=== PATIENT | female | born 1965 | race Caucasian/White ===

== ENCOUNTER 2016-03-14 02:59 | Emergency (ER) | payer BC ==
[~2016-03-14] VITALS: Ht 165.1 cm; Wt 87.5 kg
[~2016-03-14 02:59] MED LIST: AZAT50TA25 PO; FOLI400T41 PO; METH1TAB81 PO; SULF800T23 PO
[2016-03-14 03:11] VITALS: TEMP 36.8; Ht 165.1 cm; Wt 87.5 kg
[2016-03-14] MEDS ORDERED: ONDANSETRON INJ 2 MG/ML 2 ML VIAL IV STA (03:45)
[2016-03-14] MEDS ORDERED: MoRPHine SULFATE 4 MG/ML 1 ML CARP\\VIAL IV STA (03:45)
[2016-03-14] MEDS ORDERED: SODIUM CHLORIDE 0.9% 1000ML 1,000 ML IV STA (03:45)
[2016-03-14] MEDS ORDERED: OPTIRAY 320 IV PRN (04:00)
[2016-03-14 04:07] LABS: BASO % 0.2 %; BASO ABS # 0.02 K/uL (0-0.2); COMPLETE YES; EOS % 1.2 %; HEMATOCRIT 36.1 % (37-47); IG% 0.6 %; LYMPH % 19.5 %; LYMPH ABS # 2.09 K/uL (1.2-3.4); MEAN CELL VOLUME 85.3 fL (80-100); MEAN CORPUSCULAR HEMOGLOBIN 29.8 pg (25-34); MEAN CORPUSCULAR HGB CONC 34.9 g/dl (32-36); MEAN PLATELET VOLUME 9.6 fL (7.4-10.4); MONO % 7.3 %; NEUT % 71.2 %; PLATELET COUNT 221 K/uL (130-400); RED BLOOD COUNT 4.23 M/uL (4.2-5.4)
[2016-03-14 04:26] LABS: BUN/CREATININE RATIO 13.8 (10-20); CALCIUM 8.9 mg/dl (8.5-10.1); CREATININE 0.9 mg/dl (0.60-1.20); MAGNESIUM 2.1 mg/dl (1.8-2.4); POTASSIUM 3.6 mmol/L (3.5-5.1); URINE APPEARANCE CLOUDY (CLEAR); URINE BILIRUBIN NEG (NEG); URINE COLOR DK YELLOW; URINE EPITHELIAL CELL AUTO >30 /lpf (0-5); URINE NITRITE POS (NEG); URINE SPECIFIC GRAVITY 1.013 (1.000-1.030); UROBILINOGEN NEG (NEG); ZZUR CULT IF INDIC CLEAN CATCH YES
[2016-03-14 04:29] LABS: C-REACTIVE PROTEIN 1.45 mg/dl (0-0.29)
[2016-03-14 04:32] LABS: MANUAL MICROSCOPIC REQUIRED? NO; REVIEW REQ? NO
[2016-03-14] MEDS ORDERED: CIPROFLOXACIN 400MG / 200ML D5W IV STA (05:40)
[2016-03-14] MEDS ORDERED: METH-737 PO (05:58)
--- NOTE | 2016-03-14 06:13 | DIAGNOSTIC IMAGING REPORT ---
CT SCAN OF THE ABDOMEN AND PELVIS WITH IV CONTRAST CLINICAL HISTORY: Generalized abdominal pain. COMPARISON STUDY: Abdominal CT dated 02/10/2016. TECHNIQUE: Following the IV administration of 102 cc of Optiray 320, CT scan of the abdomen and pelvis is performed from the lung bases to the proximal femora. Images are reviewed in the axial, sagittal, and coronal planes. IV contrast was administered without complication. Automated dose control exposure was utilized. CT DOSE: 591.06 mGy.cm FINDINGS: Lung bases: The heart is normal in size and without pericardial effusion. There is a small fat-containing Bochdalek hernia at the right lung base. The lung bases are otherwise clear. Liver: The contrast-enhanced liver is normal in size, contour, and attenuation. There is no intrahepatic biliary ductal dilatation. The hepatic veins and portal veins are patent. Gallbladder: Surgically absent noting clips in the gallbladder fossa. Spleen: Normal in size and attenuation. Pancreas: Unremarkable. Adrenal glands: Unremarkable. Kidneys: The contrast enhanced kidneys are normal in size and without hydronephrosis. The kidneys enhance symmetrically. Abdominal vasculature: The abdominal aorta is normal in course and caliber. Bowel: There is a small duodenal diverticulum. The small bowel and colon are normal in course and caliber. There is mild colonic diverticulosis. There is mild wall thickening and inflammatory stranding involving the distal descending/proximal sigmoid colon consistent with diverticulitis. No abscess is seen. There is mild colonic fecal retention. The appendix is well-visualized and normal. Peritoneum: There is no intraperitoneal free air or abdominal ascites. Lymphadenopathy: None. Pelvic viscera: The bladder is partially decompressed and appears mildly thick-walled. The uterus is surgically absent. There is a 3.9 cm complex lesion in the left ovary. Skeletal structures: There is mild lumbosacral spondylosis. No lytic or blastic lesions are seen. IMPRESSION: 1. Findings are consistent with diverticulitis of the distal descending/proximal sigmoid colon. This is at the same site as diverticulitis seen on 02/10/2016 and the degree of inflammation has significantly diminished from that time. This could represent mild acute diverticulitis or possibly resolving diverticulitis. Clinical correlation will be required. There is no intraperitoneal free air or evidence of abscess. 2. The bladder wall appears mildly thickened. Correlation with clinical findings and urinalysis will be required. 3. There is a 3.9 cm complex cystic lesion in the left ovary, likely representing a hemorrhagic cyst. Follow-up pelvic ultrasound in 2-3 menstrual cycles is recommended for reassessment. 4. Additional findings as above. Electronically signed by: Lupillo Mcgovern M.D. 03/14/2016 6:11 AM Dictated Date/Time: 03/14/2016 5:56 AM
[2016-03-14] MEDS ORDERED: METRONIDAZOLE 250 MG TAB PO STA ×2 (06:42)
[2016-03-14] MEDS ORDERED: NORCO 5/325MG HOME PACK PO ONE (06:45)
[2016-03-14] MEDS ORDERED: CIPROFLOXACIN 500MG HOME PACK PO ONE (06:45)
[2016-03-14] MEDS ORDERED: METR-163 PO (06:46)
[2016-03-14] MEDS ORDERED: CIPR-255 PO (06:46)
[2016-03-14] MEDS ORDERED: HYDR-5688 PO (06:46)
--- NOTE | 2016-03-14 06:48 | EMERGENCY ROOM VISIT NOTE ---
History First contact with patient: 03:27 Chief Complaint: ABDOMINAL PAIN Stated Complaint: LOW ABD PAIN RIGHT SIDE,BURNING WHEN URINATING Nursing Triage Summary: pt states tuesday had frequency with urination and burning then tuesday night had left flank pain and now pain is in right lower abd, tried azo and it didn't help History of Present Illness The patient is a 50 year old female who presents to the Emergency Department by private vehicle for evaluation of her lower abdominal pain, urinary frequency, any burning with urination. The patient reports that she developed urinary frequency on Tuesday which progressively worsened to lower abdominal pain and a burning sensation. She describes mild pain in her low back as well. She reports a recent history of diverticulitis for which she was treated with Augmentin. She has not had follow-up colonoscopy to this point. 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 The patient has tried Azo [id number] with minimal relief of symptoms. She rates her current discomfort as a 10/10. The patient reports a history of multiple laparoscopies as well as and RIGHT oophorectomy and salpingectomy. She denies any fevers, chills, sussy hematuria, vaginal discharge/drainage, nausea, vomiting, or upper abdominal pain. She denies any chest pain or palpitations. Review of Systems A complete 10-point Review of Systems was discussed with the patient, with pertinent positives and negatives listed in the History of Present Illness. All remaining Review of Systems questions can be considered negative unless otherwise specified. Past Medical/Surgical History Medical Problems: (1) Dermatomyositis (2) Long-Term(Current)Use Of Steroids (3) SIRS (systemic inflammatory response syndrome) Family History FH: thyroid disease Heart disease Social History Smoking Status: Never Smoker Smokeless Tobacco Use: No Alcohol Use: none Drug Use: none Marital Status: Housing Status: lives with family Occupation Status: employed Current/Historical Medications Scheduled Baclofen (Baclofen), 10 MG PO QPM Cholecalciferol (Vitamin D), 2,000 INTER.UNIT PO DAILY Ciprofloxacin Hcl (Cipro), 500 MG PO BID Magnesium (Magnesium 250 mg), 250 MG PO AMPM Methylprednisolone (Medrol), 2 MG PO DAILY Metronidazole (Flagyl), 500 MG PO TID Mycophenolate Mofetil (Cellcept), 500 MG PO BID Omeprazole (Prilosec), 20 MG PO DAILY Pindolol (Pindolol), 5 MG PO QAM Potassium Bicarbonate (K-Effervescent), 25 MEQ PO QAM Scheduled PRN Hydrocodone/Acetaminophen 5MG/325MG (Kerman 5MG/325MG), 1-2 TABLET PO Q4H PRN for Pain Allergies Coded Allergies: Aspirin (Verified Allergy, Unknown, itching, 03/14/16) Niacin (Verified Allergy, Unknown, itching, 03/14/16) Oxycodone (Verified Allergy, Unknown, reddness to chest, 03/14/16) Pregabalin (Verified Allergy, Unknown, rash, 03/14/16) Physical Exam Vital Signs Date Time Temp Pulse Resp B/P Pulse Ox O2 Delivery O2 Flow Rate FiO2 03/14/16 07:13 80 18 122/55 97 03/14/16 07:05 80 16 122/55 97 Room Air 03/14/16 05:35 83 18 122/55 97 Room Air 03/14/16 03:11 36.8 99 18 141/94 96 Room Air Pain Rating (0-10): 10 Physical Exam VITAL SIGNS - Vital signs and nursing notes were reviewed. GENERAL - 50-year-old female appearing her stated age who is in no acute distress. Communicates well with provider and answers questions appropriately. LUNGS - Chest wall symmetric without accessory muscle use, intercostals retractions, or central cyanosis. Normal vesicular breath sounds CTA B/L. No wheezes, rales, or rhonchi appreciated. CARDIAC - RRR with S1/S2. No murmur, rubs, or gallops appreciated. ABDOMEN - Abdominal contour obese and without pulsations or visible masses. BS normoactive all four quadrants. Moderate tenderness to palpation appreciated in the suprapubic area. No guarding. No Rebound Tenderness. Negative Rovsing's. Negative Lockhart's. No palpable masses, hepatosplenomegaly, or ascites noted. PSYCH - A&Ox3 and cooperates fully with examiner. Pt is very pleasant and interacts well with examiner. Medical Decision & Procedures ER Provider Diagnostic Interpretation: Radiological imaging and reports were reviewed by myself. Radiologist's Interpretation as follows: CT SCAN OF THE ABDOMEN AND PELVIS WITH IV CONTRAST CLINICAL HISTORY: Generalized abdominal pain. COMPARISON STUDY: Abdominal CT dated 02/10/2016. TECHNIQUE: Following the IV administration of 102 cc of Optiray 320, CT scan of the abdomen and pelvis is performed from the lung bases to the proximal femora. Images are reviewed in the axial, sagittal, and coronal planes. IV contrast was administered without complication. Automated dose control exposure was utilized. CT DOSE: 591.06 mGy.cm FINDINGS: Lung bases: The heart is normal in size and without pericardial effusion. There is a small fat-containing Bochdalek hernia at the right lung base. The lung bases are otherwise clear. Liver: The contrast-enhanced liver is normal in size, contour, and attenuation. There is no intrahepatic biliary ductal dilatation. The hepatic veins and portal veins are patent. Gallbladder: Surgically absent noting clips in the gallbladder fossa. Spleen: Normal in size and attenuation. Pancreas: Unremarkable. Adrenal glands: Unremarkable. Kidneys: The contrast enhanced kidneys are normal in size and without hydronephrosis. The kidneys enhance symmetrically. Abdominal vasculature: The abdominal aorta is normal in course and caliber. Bowel: There is a small duodenal diverticulum. The small bowel and colon are normal in course and caliber. There is mild colonic diverticulosis. There is mild wall thickening and inflammatory stranding involving the distal descending/proximal sigmoid colon consistent with diverticulitis. No abscess is seen. There is mild colonic fecal retention. The appendix is well-visualized and normal. Peritoneum: There is no intraperitoneal free air or abdominal ascites. Lymphadenopathy: None. Pelvic viscera: The bladder is partially decompressed and appears mildly thick-walled. The uterus is surgically absent. There is a 3.9 cm complex lesion in the left ovary. Skeletal structures: There is mild lumbosacral spondylosis. No lytic or blastic lesions are seen. IMPRESSION: 1. Findings are consistent with diverticulitis of the distal descending/proximal sigmoid colon. This is at the same site as diverticulitis seen on 02/10/2016 and the degree of inflammation has significantly diminished from that time. This could represent mild acute diverticulitis or possibly resolving diverticulitis. Clinical correlation will be required. There is no intraperitoneal free air or evidence of abscess. 2. The bladder wall appears mildly thickened. Correlation with clinical findings and urinalysis will be required. 3. There is a 3.9 cm complex cystic lesion in the left ovary, likely representing a hemorrhagic cyst. Follow-up pelvic ultrasound in 2-3 menstrual cycles is recommended for reassessment. 4. Additional findings as above. Laboratory Results 03/14/16 03:55 Red Blood Count 4.23, Mean Corpuscular Volume 85.3, Mean Corpuscular Hemoglobin 29.8, Mean Corpuscular Hemoglobin Concent 34.9, Mean Platelet Volume 9.6, Neutrophils (%) (Auto) 71.2, Lymphocytes (%) (Auto) 19.5, Monocytes (%) (Auto) 7.3, Eosinophils (%) (Auto) 1.2, Basophils (%) (Auto) 0.2, Neutrophils # (Auto) 7.62, Lymphocytes # (Auto) 2.09, Monocytes # (Auto) 0.78, Eosinophils # (Auto) 0.13, Basophils # (Auto) 0.02 03/14/16 03:55 Test 03/14/16 03:55 White Blood Count 10.70 K/uL (4.8-10.8) Red Blood Count 4.23 M/uL (4.2-5.4) Hemoglobin 12.6 g/dL (12.0-16.0) Hematocrit 36.1 % (37-47) Mean Corpuscular Volume 85.3 fL (80-100) Mean Corpuscular Hemoglobin 29.8 pg (25-34) Mean Corpuscular Hemoglobin Concent 34.9 g/dl (32-36) Platelet Count 221 K/uL (130-400) Mean Platelet Volume 9.6 fL (7.4-10.4) Neutrophils (%) (Auto) 71.2 % Lymphocytes (%) (Auto) 19.5 % Monocytes (%) (Auto) 7.3 % Eosinophils (%) (Auto) 1.2 % Basophils (%) (Auto) 0.2 % Neutrophils # (Auto) 7.62 K/uL (1.4-6.5) Lymphocytes # (Auto) 2.09 K/uL (1.2-3.4) Monocytes # (Auto) 0.78 K/uL (0.11-0.59) Eosinophils # (Auto) 0.13 K/uL (0-0.5) Basophils # (Auto) 0.02 K/uL (0-0.2) RDW Standard Deviation 42.2 fL (36.4-46.3) RDW Coefficient of Variation 13.7 % (11.5-14.5) Immature Granulocyte % (Auto) 0.6 % Immature Granulocyte # (Auto) 0.06 K/uL (0.00-0.02) Erythrocyte Sedimentation Rate 10 mm/hr (0-21) Urine Color DK YELLOW Urine Appearance CLOUDY (CLEAR) Urine pH 7.0 (4.5-7.5) Urine Specific Te[place]y 1.013 (1.000-1.030) Urine Protein 1+ (NEG) Urine Glucose (UA) NEG (NEG) Urine Ketones NEG (NEG) Urine Occult Blood 2+ (NEG) Urine Nitrite POS (NEG) Urine Bilirubin NEG (NEG) Urine Urobilinogen NEG (NEG) Urine Leukocyte Esterase LARGE (NEG) Urine WBC (Auto) >30 /hpf (0-5) Urine RBC (Auto) >30 /hpf (0-4) Urine Hyaline Casts (Auto) 0 /lpf (0-5) Urine Epithelial Cells (Auto) >30 /lpf (0-5) Urine Bacteria (Auto) NEG (NEG) Anion Gap 9.0 mmol/L (3-11) Est Creatinine Clear Calc Drug Dose 83.5 ml/min Estimated GFR () 87.6 Estimated GFR (Non- 75.6 BUN/Creatinine Ratio 13.8 (10-20) Calcium Level 8.9 mg/dl (8.5-10.1) Magnesium Level 2.1 mg/dl (1.8-2.4) Total Bilirubin 0.3 mg/dl (0.2-1) Aspartate Amino Transf (AST/SGOT) 24 U/L (15-37) Alanine Aminotransferase (ALT/SGPT) 33 U/L (12-78) Alkaline Phosphatase 104 U/L (45-117) C-Reactive Protein 1.45 mg/dl (0-0.29) Total Protein 6.9 gm/dl (6.4-8.2) Albumin 3.5 gm/dl (3.4-5.0) Globulin 3.4 gm/dl (2.5-4.0) Albumin/Globulin Ratio 1.0 (0.9-2) Lipase 162 U/L (73-393) Medications Administered Medications (Trade) Dose Ordered Sig/Danyelle Route Start Time Stop Time Status Last Admin Dose Admin Sodium Chloride (Nss 1000ml) 1,000 ml @ 999 mls/hr Q1H1M STAT IV 03/14/16 03:45 03/14/16 04:45 DC 03/14/16 04:11 999 MLS/HR Ondansetron HCl (Zofran Inj) 4 mg NOW STAT IV 03/14/16 03:45 03/14/16 03:47 DC 03/14/16 04:11 4 MG Morphine Sulfate (MoRPHine SULFATE INJ) 4 mg NOW STAT IV 03/14/16 03:45 03/14/16 03:47 DC 03/14/16 04:11 4 MG Ciprofloxacin/ Dextrose (Cipro / D5w) 400 mg NOW STAT IV 03/14/16 05:40 03/14/16 05:41 DC 03/14/16 05:48 400 MG Metronidazole (Flagyl Tab) 500 mg NOW STAT PO 03/14/16 06:42 03/14/16 06:44 DC 03/14/16 06:57 500 MG ED Course Patient was seen and evaluated by myself. Previous emergency department visit notes and hospitalizations were reviewed. Labs were drawn, saline lock in place. The patient was hydrated with a 1000 mL normal saline bolus. She received 4 mg morphine and 4 mg Zofran intravenously for pain. Laboratory results demonstrate no acute leukocytosis, worrisome anemia, or bandemia. The patient has no significant electrolyte abnormalities. Urinalysis consistent with UTI. The patient was treated with [address] results above. Laboratory results and imaging studies were reviewed with the patient who acknowledges understanding. The patient was treated with oral Flagyl as well as. The patient will follow-up with her primary care provider this week for repeat abdominal exam. She will return to the emergency department sooner in the setting of any changing or worsening symptoms. Patient discharged home afebrile and in good condition. Medical Decision Given the patient's presentation and exam findings, I did elect to perform the above-mentioned workup. The patient presents today with increasing urinary frequency as well as dysuria. She complains of some lower abdominal pain as well. She did have a recent episode of diverticulitis as well. She is tender in her suprapubic area. Because this, a CT scan was performed. She had no fever leukocytosis. Her ESR and CRP are not significantly elevated. The patient is on immunosuppressive drugs, however. Interestingly, the patient did have a UTI. Because of her complaint of mild back discomfort, she was treated with IV Cipro for greater coverage. In addition, there is findings consistent with diverticulitis without perforation. I question if this is likely unresolved diverticulitis from early last month. Regardless, she will be covered with Cipro and Flagyl. She was on Augmentin alone during her last episode. She will follow up very closely with her primary care provider this week and recheck. She will return to the emergency department for any change or worsening symptoms. Patient discharged home afebrile and in good condition. In the evaluation and treatment of this patient, the following differential diagnoses were considered: Appendicitis, Diverticulitis, Diverticulosis, Colitis , Ischemic Colitis, Inflammatory Bowel Disease, Irritable Bowel Disease, Ovarian Torsion, Kidney Stone, Pyelonephritis, Hydronephrosis, Cholecystitis, Ascending Cholangitis, Choledocholithiasis, GERD. Impression Primary Impression: Lower abdominal pain Additional Impressions: Cystitis Diverticulitis Departure Information Dispostion Home / Self-Care Condition GOOD Prescriptions Hydrocodone/Acetaminophen 5MG/325MG (Kerman 5MG/325MG) Tab 1-2 TABLET PO Q4H Y for Pain, #16 TAB For Initial Treatment Prov: Gee Luciano PA-C 03/14/16 Metronidazole (Flagyl) 500 Mg Tab 500 MG PO TID for 14 Days, #42 TAB Prov: Gee Luciano PA-C 03/14/16 Ciprofloxacin Hcl (CIPRO) 500 Mg Tab 500 MG PO BID for 14 Days, #28 TAB Prov: Gee Luciano PA-C 03/14/16 Referrals Nato Barrios M.D. (PCP) Patient Instructions ED Bladder Infec Cystitis Female Ch, ED Diverticulitis, Counts Include 234 B[facility] At [facility] Additional Instructions You have been seen in the emergency department today for your urinary symptoms - cystitis. You have also been found to have ongoing diverticulitis. Please take both antibiotics as prescribed. You have been prescribed Kerman to be used for pain control. This is a narcotic medication. You cannot drive or consume alcohol while on this medicine. This medicine should only be used for pain that cannot be controlled with over-the- counter pain medicines. For pain control, you can use the following [id number] medicines (if >12 yo): - Regular strength (325mg/tab) Tylenol (acetaminophen) 2 tabs every 4-6 hours as needed. Do not exceed 12 tablets in a 24 hour period. Avoid taking more than 4 grams (4000 mg) of Tylenol per day. This includes any other sources of acetaminophen you may take on a regular basis. - Regular strength (200 mg/tab) Advil (ibuprofen) 1-2 tabs every 4-6 hours as needed. Do not exceed a dose of 3200 mg per day. Drink plenty of water and stay well hydrated. Please follow-up with your primary care provider early this week for recheck. Return to the emergency department if your symptoms persist despite treatment plan outlined above or if the following symptoms occur: increased fevers, chills , worsening nausea/vomiting, blood in your stool or urine. Problem Qualifiers Additional Impressions: Diverticulitis Diverticulitis site: large intestine Diverticulitis bleeding: without bleeding Diverticulitis complication: without perforation or abscess Qualified Codes: K57.32 - Diverticulitis of large intestine without perforation or abscess without bleeding
[2016-03-14 07:13] VITALS: BP 122/55; PULSE 80; O2SAT 97
[2016-04-20] MEDS ORDERED: VSK5 PO (00:34)
[2016-04-20] MEDS ORDERED: POTA25TA5 PO (00:36)
[2016-04-20] MEDS ORDERED: MAGN250T3 PO (00:38)
[2016-04-20] MEDS ORDERED: MYCO500T4 PO (05:58)
[2016-04-20] MEDS ORDERED: PRLSR20 PO (09:55)
[2016-04-20] MEDS ORDERED: LRS10 PO (09:55)
== END 2016-03-14 07:05 | disposition home or self-care (01) ==
LOC: C.EDB 03:00
DX: R10.30 Lower abdominal pain, unspecified (principal); K57.32 Diverticulitis of large intestine without perforation or abscess without bleeding; N39.0 Urinary tract infection, site not specified

== ENCOUNTER 2016-04-20 17:10 | Emergency (ER) | payer BC ==
[~2016-04-20] VITALS: Ht 165.1 cm; Wt 84.0 kg
[~2016-04-20 17:10] MED LIST changes: -AZAT50TA25 PO; +CIPR-255 PO; -FOLI400T41 PO; +HYDR-5688 PO; +LRS10 PO; +MAGN250T3 PO; +METH-737 PO; -METH1TAB81 PO; +MYCO500T4 PO; +POTA25TA5 PO; +PRLSR20 PO; -SULF800T23 PO; +VSK5 PO
[2016-04-20 17:15] VITALS: TEMP 37.3; Ht 165.1 cm; Wt 84.0 kg
[2016-04-20] MEDS ORDERED: SODIUM CHLORIDE 0.9% 1000ML 2,000 ML IV STA (19:10)
[2016-04-20] MEDS ORDERED: OPTIRAY 320 IV PRN (19:15)
[2016-04-20] MEDS ORDERED: DICY10CA55 PO (19:21)
[2016-04-20] MEDS ORDERED: CHOL100041 PO (19:29)
[2016-04-20 20:05] LABS: BASO % 0.2 %; BASO ABS # 0.02 K/uL (0-0.2); COMPLETE YES; EOS % 4.7 %; HEMATOCRIT 37.2 % (37-47); IG% 0.1 %; LYMPH ABS # 2.57 K/uL (1.2-3.4); MEAN CELL VOLUME 83.8 fL (80-100); MEAN CORPUSCULAR HEMOGLOBIN 29.1 pg (25-34); MEAN CORPUSCULAR HGB CONC 34.7 g/dl (32-36); MEAN PLATELET VOLUME 9.6 fL (7.4-10.4); MONO % 7.3 %; NEUT % 55.7 %; PLATELET COUNT 255 K/uL (130-400); RED BLOOD COUNT 4.44 M/uL (4.2-5.4); WHITE BLOOD COUNT 8.03 K/uL (4.8-10.8)
[2016-04-20 20:22] LABS: ALT/SGPT 51 U/L (12-78); BLOOD UREA NITROGEN 11 mg/dl (7-18); BUN/CREATININE RATIO 13.7 (10-20); CALCIUM 9.2 mg/dl (8.5-10.1); CARBON DIOXIDE 25 mmol/L (21-32); CHLORIDE 104 mmol/L (98-107); CREATININE 0.82 mg/dl (0.60-1.20); GLUCOSE 110 mg/dl (70-99); POTASSIUM 3.6 mmol/L (3.5-5.1); SODIUM 141 mmol/L (136-145)
[2016-04-20 20:23] LABS: URINE APPEARANCE CLEAR (CLEAR); URINE BILIRUBIN NEG (NEG); URINE COLOR YELLOW; URINE EPITHELIAL CELL AUTO >30 /lpf (0-5); URINE NITRITE NEG (NEG); URINE PH 7.5 (4.5-7.5); URINE SPECIFIC GRAVITY 1.015 (1.000-1.030); UROBILINOGEN NEG (NEG); ZZUR CULT IF INDIC CLEAN CATCH NO
[2016-04-20 20:25] LABS: ALKALINE PHOSPHATASE 99 U/L (45-117); AST/SGOT 44 U/L (15-37)
[2016-04-20 20:30] LABS: MANUAL MICROSCOPIC REQUIRED? NO; REVIEW REQ? NO
--- NOTE | 2016-04-20 22:05 | DIAGNOSTIC IMAGING REPORT ---
ABDOMEN AND PELVIS CT WITH IV CONTRAST CT DOSE: 599.51 mGy.cm HISTORY: Left lower quadrant abdominal pain with diarrhea. TECHNIQUE: Multiaxial CT images of the abdomen and pelvis were performed following the use of intravenous contrast. COMPARISON STUDY: Abdomen and pelvis CT 03/14/2016. FINDINGS: No pneumoperitoneum. No pneumatosis. No suspicious lytic or blastic osseous lesions. Cholecystectomy. The liver, spleen, kidneys, and adrenal glands are unremarkable. No retroperitoneal lymphadenopathy. The bladder is unremarkable. Hysterectomy. The left ovarian cyst has almost completely resolved. Normal appendix. There is minimal fat stranding surrounding the pancreatic tail. This is consistent with acute pancreatitis. Colonic diverticulosis. Near-complete resolution of the pericolonic fat stranding at the junction of the descending colon/sigmoid colon. This is consistent with a resolving acute diverticulitis. IMPRESSION: 1. Interval development of mild fat stranding surrounding the pancreatic tail. This is consistent with acute pancreatitis. 2. Near complete resolution of the pericolonic fat stranding at the junction of the descending colon/sigmoid colon consistent with a resolving diverticulitis. No perforation or abscess. 3. Cholecystectomy and hysterectomy. Electronically signed by: Baudilio Delacruz M.D. 04/20/2016 10:03 PM Dictated Date/Time: 04/20/2016 9:56 PM
[2016-04-20] MEDS ORDERED: CHOL100010 PO (22:10)
[2016-04-20 22:51] VITALS: BP 118/62; PULSE 81; O2SAT 98
--- NOTE | 2016-04-21 02:02 | EMERGENCY ROOM VISIT NOTE ---
History Report prepared by Teresa: Storm Vivas Under the Supervision of: Dr. Ricky Ibanez D.O. First contact with patient: 19:02 Chief Complaint: REFERRED BY DOCTOR Stated Complaint: CHRONIC DIARRHEA, PAIN LT SIDE History of Present Illness The patient is a 50 year old female who presents to the Emergency Room with complaints of persistent diarrhea that began on Tuesday of last week, 6 days prior to arrival. The patient states that she was first diagnosed with Diverticulitis in January of last year, and again in February of this year. She had a colonoscopy performed on April 09, and felt fine that weekend. Since her diarrhea began she has not been able to eat or drink anything without having a diarrhea-like bowel movement. There was blood in her stool on Tuesday , 3 days prior to this visit, but has not noticed any more blood in the stool over the past 3 days. She has not experienced any fevers or vomiting since her diarrhea began. The patient estimates that she has been averaging 10 bowel movements per day since Tuesday. She has Factor 2 clotting disorder. The patient has had a cholecystectomy, put still has her appendix. Pt denies headache, change in vision, chest pain, shortness of breath, and pain with urination. Source of History: patient Onset: 6 days prior to arrival Position: other (Gastrointestinal) Quality: other (Diarrhea ) Timing: other (Persistent) Associated Symptoms: No fevers, No vomiting Note: Blood in the stool Review of Systems See HPI for pertinent positives & negatives. A total of 10 systems reviewed and were otherwise negative. Past Medical & Surgical Medical Problems: (1) Dermatomyositis (2) Long-Term(Current)Use Of Steroids (3) SIRS (systemic inflammatory response syndrome) Family History FH: thyroid disease Heart disease Social History Smoking Status: Former Smoker Alcohol Use: none Drug Use: none Marital Status: Housing Status: lives with family Occupation Status: employed Current/Historical Medications Scheduled Baclofen (Baclofen), 10 MG PO HS Cholecalciferol (D 1000), 2 TAB PO DAILY Dicyclomine Hcl (Bentyl), 10 MG PO BID Magnesium (Magnesium 250 mg), 250 MG PO HOLD Mycophenolate Mofetil (Cellcept), 500 MG PO HOLD Omeprazole (Prilosec), 20 MG PO DAILY Pindolol (Pindolol), 5 MG PO QAM Potassium Bicarbonate (K-Effervescent), 25 MEQ PO QAM Allergies Coded Allergies: Sumatriptan (Verified Allergy, Severe, FLUSHED, LIGHTHEADED, 04/20/16) Aspirin (Verified Allergy, Unknown, itching, 03/14/16) Niacin (Verified Allergy, Unknown, itching, 03/14/16) Oxycodone (Verified Allergy, Unknown, reddness to chest, 03/14/16) Pregabalin (Verified Allergy, Unknown, rash, 03/14/16) Methotrexate (Verified Adverse Reaction, Unknown, NAUSEA & VOMITING, ) Physical Exam Vital Signs Date Time Temp Pulse Resp B/P Pulse Ox O2 Delivery O2 Flow Rate FiO2 04/20/16 22:51 81 16 118/62 98 04/20/16 22:49 81 16 118/62 98 Room Air 04/20/16 21:22 75 18 133/77 98 Room Air 04/20/16 19:01 78 18 133/77 98 Room Air 04/20/16 17:15 37.3 89 18 127/70 98 Physical Exam GENERAL: Sitting up in bed. well appearing, well nourished, no distress, non- toxic EYE EXAM: normal conjunctiva. OROPHARYNX: no exudate, no erythema, lips, buccal mucosa, and tongue normal and mucous membranes are moist NECK: supple, no nuchal rigidity, no adenopathy, non-tender LUNGS: Clear to auscultation. Normal chest wall mechanics HEART: no murmurs, S1 normal and S2 normal ABDOMEN: Minimal tenderness in the LLQ. abdomen soft, normo-active bowel sounds , no masses, no rebound or guarding. BACK: Back is symmetrical on inspection and there is no deformity, no midline tenderness, no CVA tenderness. SKIN: no rashes and no bruising UPPER EXTREMITIES: upper extremities are grossly normal. LOWER EXTREMITIES: No pitting edema. NEURO EXAM: Normal sensorium, cranial nerves II-XII grossly intact, normal speech, no gross weakness of arms, no gross weakness of legs. Medical Decision & Procedures ER Provider Diagnostic Interpretation: Xray results per the radiologist and my interpretation. Other results have been interpreted by the radiologist and reviewed by me. ABDOMEN AND PELVIS CT WITH IV CONTRAST CT DOSE: 599.51 mGy.cm HISTORY: Left lower quadrant abdominal pain with diarrhea. TECHNIQUE: Multiaxial CT images of the abdomen and pelvis were performed following the use of intravenous contrast. COMPARISON STUDY: Abdomen and pelvis CT 03/14/2016. FINDINGS: No pneumoperitoneum. No pneumatosis. No suspicious lytic or blastic osseous lesions. Cholecystectomy. The liver, spleen, kidneys, and adrenal glands are unremarkable. No retroperitoneal lymphadenopathy. The bladder is unremarkable. Hysterectomy. The left ovarian cyst has almost completely resolved. Normal appendix. There is minimal fat stranding surrounding the pancreatic tail. This is consistent with acute pancreatitis. Colonic diverticulosis. Near-complete resolution of the pericolonic fat stranding at the junction of the descending colon/sigmoid colon. This is consistent with a resolving acute diverticulitis. IMPRESSION: 1. Interval development of mild fat stranding surrounding the pancreatic tail. This is consistent with acute pancreatitis. 2. Near complete resolution of the pericolonic fat stranding at the junction of the descending colon/sigmoid colon consistent with a resolving diverticulitis. No perforation or abscess. 3. Cholecystectomy and hysterectomy. Electronically signed by: Baudilio Delacruz M.D. 04/20/2016 10:03 PM Dictated Date/Time: 04/20/2016 9:56 PM Laboratory Results 04/20/16 19:45 Red Blood Count 4.44, Mean Corpuscular Volume 83.8, Mean Corpuscular Hemoglobin 29.1, Mean Corpuscular Hemoglobin Concent 34.7, Mean Platelet Volume 9.6, Neutrophils (%) (Auto) 55.7, Lymphocytes (%) (Auto) 32.0, Monocytes (%) (Auto) 7.3, Eosinophils (%) (Auto) 4.7, Basophils (%) (Auto) 0.2, Neutrophils # (Auto) 4.46, Lymphocytes # (Auto) 2.57, Monocytes # (Auto) 0.59, Eosinophils # (Auto) 0.38, Basophils # (Auto) 0.02 04/20/16 19:45 Test 04/20/16 19:44 04/20/16 19:45 04/20/16 19:50 04/20/16 20:38 Bedside Lactic Acid Venous 1.88 mmol/L (0.90-1.70) White Blood Count 8.03 K/uL (4.8-10.8) Red Blood Count 4.44 M/uL (4.2-5.4) Hemoglobin 12.9 g/dL (12.0-16.0) Hematocrit 37.2 % (37-47) Mean Corpuscular Volume 83.8 fL (80-100) Mean Corpuscular Hemoglobin 29.1 pg (25-34) Mean Corpuscular Hemoglobin Concent 34.7 g/dl (32-36) Platelet Count 255 K/uL (130-400) Mean Platelet Volume 9.6 fL (7.4-10.4) Neutrophils (%) (Auto) 55.7 % Lymphocytes (%) (Auto) 32.0 % Monocytes (%) (Auto) 7.3 % Eosinophils (%) (Auto) 4.7 % Basophils (%) (Auto) 0.2 % Neutrophils # (Auto) 4.46 K/uL (1.4-6.5) Lymphocytes # (Auto) 2.57 K/uL (1.2-3.4) Monocytes # (Auto) 0.59 K/uL (0.11-0.59) Eosinophils # (Auto) 0.38 K/uL (0-0.5) Basophils # (Auto) 0.02 K/uL (0-0.2) RDW Standard Deviation 38.7 fL (36.4-46.3) RDW Coefficient of Variation 12.7 % (11.5-14.5) Immature Granulocyte % (Auto) 0.1 % Immature Granulocyte # (Auto) 0.01 K/uL (0.00-0.02) Anion Gap 12.0 mmol/L (3-11) Est Creatinine Clear Calc Drug Dose 89.8 ml/min Estimated GFR () 98.1 Estimated GFR (Non- 84.6 BUN/Creatinine Ratio 13.7 (10-20) Calcium Level 9.2 mg/dl (8.5-10.1) Total Bilirubin 0.4 mg/dl (0.2-1) Direct Bilirubin < 0.1 mg/dl (0-0.2) Aspartate Amino Transf (AST/SGOT) 44 U/L (15-37) Alanine Aminotransferase (ALT/SGPT) 51 U/L (12-78) Alkaline Phosphatase 99 U/L (45-117) Total Protein 7.4 gm/dl (6.4-8.2) Albumin 3.5 gm/dl (3.4-5.0) Lipase 139 U/L (73-393) Urine Color YELLOW Urine Appearance CLEAR (CLEAR) Urine pH 7.5 (4.5-7.5) Urine Specific [place] 1.015 (1.000-1.030) Urine Protein NEG (NEG) Urine Glucose (UA) NEG (NEG) Urine Ketones NEG (NEG) Urine Occult Blood NEG (NEG) Urine Nitrite NEG (NEG) Urine Bilirubin NEG (NEG) Urine Urobilinogen NEG (NEG) Urine Leukocyte Esterase TRACE (NEG) Urine WBC (Auto) 1-5 /hpf (0-5) Urine RBC (Auto) 0-4 /hpf (0-4) Urine Hyaline Casts (Auto) 0 /lpf (0-5) Urine Epithelial Cells (Auto) >30 /lpf (0-5) Urine Bacteria (Auto) NEG (NEG) Urine Test NEG (NEG) Lactic Acid Level 1.3 mmol/L (0.4-2.0) Laboratory results per my review. Medications Administered Medications (Trade) Dose Ordered Sig/Danyelle Route Start Time Stop Time Status Last Admin Dose Admin Sodium Chloride (Nss 1000ml) 2,000 ml @ 999 mls/hr Q2H1M STAT IV 04/20/16 19:10 04/20/16 21:10 DC 04/20/16 19:59 999 MLS/HR ED Course ED COURSE: Vital signs were reviewed and showed normal vitals The patients medical record was reviewed The above diagnostic studies were performed and reviewed. ED treatments and interventions as stated above. 1903: The patient was evaluated in room C1. A complete history and physical examination was performed. 1909: Ordered Sodium Chloride 2000 mL @ 999 mL/hr IV. 0: I checked on the patient at this time, and updated her on the results of the visit so far. 5: Upon reevaluation, the patient has been unable to provide a stool sample at this time.I discussed my findings with the patient and she understands and agrees with the treatment plan. Based on the patients age, coexisting illnesses, exam and lab findings the decision to treat as an outpatient was made. The patient remained stable while under my care. The patient appeared well at the time of discharge. Medical Decision Differential diagnoses includes but is not limited to gastritis, peptic ulcer disease, GERD, gallbladder disease, pancreatitis, small bowel obstruction, acute coronary syndrome, pericarditis, ischemic bowel, irritable bowel disease, irritable bowel syndrome, appendicitis, diverticulitis, malignancy, hernia, urinary tract infection, torsion, perforation, trauma, infectious. Patient is a 42-year-old female referred in by her primary care doctor for left lower quadrant abdominal pain. She was previously treated for diverticulitis and was scoped in early March. Since then she has had minimal tenderness in her left lower quadrant. She has been having about 10 bowel movements a day for the past week. She has no nausea vomiting. Abdominal exam is fairly benign with minimal tenderness in the left lower quadrant. CBC shows no significant leukocytosis or anemia. BMP was unremarkable. Lactic acid initially was 1.8 which is essentially normal. Repeat was 1.3. Bilirubin and LFTs along with lipase was normal. CT of her abdomen pelvis was unremarkable with exception of mild stranding around the distal portion of the pancreas. This does suggest slight acute pancreatitis. The patient is able to eat and drink though without any worsening of her pain. Pain is true be in the left lower quadrant. I do not believe that this consistent with pancreatitis. If it is this is a very mild pancreatitis I question if this secondary to her diarrhea. She does not have a gallbladder. She does not drink alcohol. With a normal lipase she was discharged to follow-up with primary care doctor. She was unable to give a stool sample in the ER. She give a stool several yesterday to her PCP which was pending. Discussed with Pt concerning signs and symptoms to watch out for. Pt was instructed to follow up with their PCP and discussed with the patient their option to return to the ED at anytime for persistent or worsening symptoms. The appropriate anticipatory guidance and out- patient management, including indications for return to the emergency department , were explained at length to the patient and understood. Impression Primary Impression: LLQ abdominal pain Additional Impression: Diarrhea Scribe Attestation The scribe's documentation has been prepared under my direction and personally reviewed by me in its entirety. I confirm that the note above accurately reflects all work, treatment, procedures, and medical decision making performed by me. Departure Information Dispostion Home / Self-Care Referrals No Doctor, Assigned (PCP) Forms HOME CARE DOCUMENTATION FORM, IMPORTANT VISIT INFORMATION, WORK / SCHOOL INSTRUCTIONS Patient Instructions My [facility] Additional Instructions Please follow up with your primary care doctor with in the next 24 hours. Any worsening of your symptoms, please return to the ED immediately. This includes persistent vomiting or diarrhea, bloody stool, passing out, worsening abdominal pain, or any other concerning signs or symptoms from your standpoint. CT of your abdomen shows mild inflammation around tele-pancreas. Lipase is normal. Please have this followed up with your regular doctor within the week. Problem Qualifiers Additional Impression: Diarrhea Diarrhea type: unspecified type Qualified Codes: R19.7 - Diarrhea, unspecified
== END 2016-04-20 22:52 | disposition home or self-care (01) ==
LOC: C.EDB 17:15 → C.EDC 22:52
DX: R10.32 Left lower quadrant pain (principal); R19.7 Diarrhea, unspecified; Z79.52 Long term (current) use of systemic steroids; Z82.49 Family history of ischemic heart disease and other diseases of the circulatory system; Z87.891 Personal history of nicotine dependence

== ENCOUNTER 2016-12-11 15:06 | Emergency (ER) | payer BC ==
[~2016-12-11] VITALS: Ht 165.1 cm; Wt 92.9 kg
[~2016-12-11 15:06] MED LIST changes: -CIPR-255 PO; +DICY10CA55 PO; -HYDR-5688 PO; -METH-737 PO
[2016-12-11 15:10] VITALS: TEMP 36.7; Ht 165.1 cm; Wt 92.9 kg
[2016-12-11] MEDS ORDERED: TRAZ50TA35 PO (15:41)
[2016-12-11] MEDS ORDERED: MDR4 PO (15:41)
[2016-12-11] MEDS ORDERED: IBUP-1050 PO (15:41)
--- NOTE | 2016-12-11 15:53 | EMERGENCY ROOM VISIT NOTE ---
History First contact with patient: 15:17 Chief Complaint: KNEEPAIN Stated Complaint: TWISTED LEFT KNEE ON TUE., SWOLLEN History of Present Illness The patient is a 51 year old female who presents to the Emergency Room with complaints of Left knee pain -On Tuesday pt reports turning flat footed to her left in her kitchen and immediately feeling pain. Pt denies popping or clicking with injury. -Pt denies past injuries to the knee. -Pt describes a couple days of dull pain in the medial aspect, but says that she was able to ambulate, weight bear normally -Pt describes the pain as a constant, dull, 4/10. -Pt says that yesterday the pain was 8/10 and that she had significant edema distal of the injury. She also describes decreased range of motion, unable to fully extend the knee. -Pt says that the increase in the pain yesterday and edema prompted her to come in today -Pt denies fever -Pt does express a PMHx of clotting disorder, factor 2. Pt is not on a blood thinner. -Pt denies cough or hemoptysis -Pt also expresses a PMHx of polymyositis Review of Systems see below Constitutional: No fever, No chills, No sweats Respiratory: No cough, No sputum, No shortness of breath Cardiovascular: No chest pain Abdomen: No pain, No nausea, No vomiting Past Medical/Surgical History Medical Problems: (1) Dermatomyositis (2) Long-Term(Current)Use Of Steroids (3) SIRS (systemic inflammatory response syndrome) Family History FH: thyroid disease Heart disease Social History Smoking Status: Never Smoker Alcohol Use: none Drug Use: none Marital Status: Housing Status: lives with family Occupation Status: employed Current/Historical Medications Scheduled Cholecalciferol (D 1000), 2 TAB PO DAILY Ibuprofen (Advil), 800 MG PO PRN UD Magnesium (Magnesium 250 mg), 250 MG PO BID Methylprednisolone (Methylprednisolone), 4 MG PO UD Omeprazole (Prilosec), 20 MG PO DAILY Pindolol (Pindolol), 5 MG PO QAM Potassium Bicarbonate (K-Effervescent), 25 MEQ PO QAM Scheduled PRN Trazodone Hcl (Trazodone), 1-2 TABS PO HS PRN for Sleep Physical Exam Vital Signs Date Time Temp Pulse Resp B/P (MAP) Pulse Ox O2 Delivery O2 Flow Rate FiO2 12/11/16 16:33 93 20 112/97 97 Room Air 12/11/16 15:10 36.7 84 20 131/83 94 Room Air Physical Exam see below General Appearance: WD/WN, no apparent distress Head: normocephalic, atraumatic Respiratory/Chest: chest non-tender, lungs clear, normal breath sounds, no respiratory distress, no accessory muscle use Cardiovascular: regular rate, rhythm, no edema, no gallop, no JVD, no murmur Extremities: no calf tenderness, + pertinent finding (Pt has normal passive and active ROM of left knee. Pt has normal stability of the knee, negative anterior and posterior draw. Moderate effusion over medial aspect of left knee. Medial aspect of the left knee is warm. Pt expresses tenderness of the medial joint space of the left knee. Pt has subtle pedal swelling of the left foot. ) Medical Decision & Procedures ED Course 15:15--History and physical performed 15:20--Knee Xray ordered 1600--reviewed Xray--no bone abnormalities 1610--reaccessed, discussed discharge instructions Medical Decision 51 F has left knee pain following a precipitating injury -Considering the following differential: muscle strain/sprain, meniscal tear, medial collateral ligament tear, ACL tear, Wheeler cyst -Xray did not show bony pathology -Pt should follow-up with their PCP and orthopedics in the outpatient setting -Pt did describe a h/o clotting disorder. DVT was considered, but in the context of precipitation injury and tenderness of the medial joint space, makes this less likely. -Pt should follow-up with her clotting disorder with her PCP. Impression Primary Impression: Knee pain Departure Information Dispostion Home / Self-Care Condition GOOD Referrals Carmen Alegre (PCP) Patient Instructions My [facility] Additional Instructions On x ray of your knee, no fractures of abnormalities of the bone were seen. It appears that you have a soft tissue injury of the knee. We advise you to take 800mg of ibuprofen three times a day. We also advise you to keep the knee elevated, use a RAYA bandage and to ice the knee in 20 minute intervals. Please follow up with your PCP. We also advice you to follow up with Orthopedics , Dr. Darrick Walden, for further workup.
--- NOTE | 2016-12-11 15:57 | EMERGENCY ROOM VISIT NOTE ---
ED Visit Note First contact with patient: 15:17 Resident Physician Supervision Note: I was present with Dr. Contreras during the history and exam. I discussed the case with the resident and agree with the findings and plan as documented in the note. Documented By: Emigdio Hilario
--- NOTE | 2016-12-11 16:03 | DIAGNOSTIC IMAGING REPORT ---
LEFT KNEE 2 VIEWS CLINICAL HISTORY: Left knee pain. FINDINGS: AP and crosstable lateral views of left knee are obtained. No prior studies are available for comparison at the time of dictation. The skeletal structures are well mineralized. No fracture is seen. There is mild degenerative narrowing in the medial and patellofemoral compartments. Tiny marginal osteophytes are observed. There is no joint effusion. The overlying soft tissues are within normal limits. IMPRESSION: No acute bony abnormality is identified in the left knee. Electronically signed by: Lupillo Mcgovern M.D. 12/11/2016 4:02 PM Dictated Date/Time: 12/11/2016 4:01 PM
[2016-12-11 16:33] VITALS: BP 112/97; PULSE 93; O2SAT 97
[2016-12-11] MEDS ORDERED: CHOL100041 PO (19:29)
== END 2016-12-11 16:30 | disposition home or self-care (01) ==
LOC: C.EDB 15:08 → C.EDD 16:30
DX: M25.562 Pain in left knee (principal); M25.462 Effusion, left knee; R60.0 Localized edema; D68.4 Acquired coagulation factor deficiency; Z79.52 Long term (current) use of systemic steroids

== ENCOUNTER 2017-04-15 20:19 | Emergency (ER) | payer BC ==
[~2017-04-15] VITALS: Ht 165.1 cm; Wt 90.6 kg
[~2017-04-15 20:19] MED LIST changes: +CHOL100041 PO; -DICY10CA55 PO; +IBUP-1050 PO; -LRS10 PO; +MDR4 PO; -MYCO500T4 PO; +TRAZ50TA35 PO
[2017-04-15 20:21] VITALS: TEMP 36.9; Ht 165.1 cm; Wt 90.6 kg
[2017-04-15] MEDS ORDERED: ONDANSETRON INJ 2 MG/ML 2 ML VIAL IV STA (21:58)
[2017-04-15] MEDS ORDERED: SODIUM CHLORIDE 0.9% 1000ML 1,000 ML IV ONE (22:00)
[2017-04-15] MEDS ORDERED: MoRPHine SULFATE 4 MG/ML 1 ML CARP\\VIAL IV ONE (22:00)
[2017-04-15 22:19] LABS: BASO % 0.2 %; BASO ABS # 0.03 K/uL (0-0.2); EOS % 2.2 %; EOS ABS # 0.28 K/uL (0-0.5); HEMATOCRIT 37.7 % (37-47); HEMOGLOBIN 13.2 g/dL (12.0-16.0); IG# 0.04 K/uL (0.00-0.02); LYMPH % 18.5 %; LYMPH ABS # 2.37 K/uL (1.2-3.4); MEAN CELL VOLUME 79.5 fL (80-100); MEAN CORPUSCULAR HEMOGLOBIN 27.8 pg (25-34); MONO % 8.9 %; MONO ABS # 1.14 K/uL (0.11-0.59); NEUT % 69.9 %; NEUT ABS # 8.94 K/uL (1.4-6.5); PLATELET COUNT 290 K/uL (130-400); RED CELL DISTRIBUTION WIDTH CV 13.1 % (11.5-14.5); RED CELL DISTRIBUTION WIDTH SD 37.8 fL (36.4-46.3)
[2017-04-15 22:40] LABS: ALBUMIN 3.6 gm/dl (3.4-5.0); CALCIUM 9.7 mg/dl (8.5-10.1); CREATININE 0.96 mg/dl (0.60-1.20); POTASSIUM 3.8 mmol/L (3.5-5.1)
[2017-04-15 22:43] LABS: TOTAL PROTEIN 7.7 gm/dl (6.4-8.2)
[2017-04-15] MEDS ORDERED: OMEG10002 PO (22:43)
--- NOTE | 2017-04-15 23:22 | DIAGNOSTIC IMAGING REPORT ---
CT OF THE ABDOMEN AND PELVIS WITHOUT CONTRAST CLINICAL HISTORY: Abdominal pain. COMPARISON STUDY: CT of the abdomen and pelvis April 20, 2016. TECHNIQUE: Axial images of the abdomen and pelvis were obtained without IV contrast. Images were reviewed in the axial, sagittal, and coronal planes. A dose lowering technique was utilized adhering to the principles of ALARA. FINDINGS: Lung bases are clear. There is marked geographic fatty infiltration of the liver. There is no biliary ductal dilatation status post cholecystectomy. There is no peripancreatic infiltration. There is a diverticulum of the second portion of the duodenum. There is moderate infiltration centered on the uncinate process of the pancreas and the distal duodenum which extends into the root of the small bowel mesentery. There is no well-defined fluid collection. Unenhanced images of the spleen, adrenal glands and kidneys are unremarkable. There is no evidence for a bowel obstruction. The appendix is normal. There is colonic diverticulosis without evidence for acute diverticulitis. There is no lymphadenopathy. The uterus is surgically absent. There are no suspicious osseous lesions. IMPRESSION: 1. Moderate infiltration centered on the uncinate process of the pancreas and distal duodenum with extension into the mesentery. The findings favor acute pancreatitis. Duodenitis could appear similar although is considered less likely. 2. Marked geographic fatty infiltration of the liver. 3. Colonic diverticulosis without evidence for acute diverticulitis. Electronically signed by: William Hobson M.D. 04/15/2017 11:21 PM Dictated Date/Time: 04/15/2017 11:15 PM
[2017-04-16] MEDS ORDERED: HYDROmorphone INJ 0.5 MG/0.5 ML SYR IV STA ×2 (00:22→02:56)
[2017-04-16] MEDS ORDERED: KETOROLAC TROMETHAMINE 30 MG/ML VIAL IV STA (00:22)
[2017-04-16] MEDS ORDERED: SODIUM CHLORIDE 0.9% 1000ML 1,000 ML IV ONE (00:30)
[2017-04-16] MEDS ORDERED: NORCO 5/325MG HOME PACK PO ONE (03:00)
[2017-04-16] MEDS ORDERED: ONDANSETRON HOME PACK 4MG OD TAB PO ONE (03:00)
[2017-04-16] MEDS ORDERED: ONDA4TAB10 SL (03:01)
[2017-04-16] MEDS ORDERED: HYDR-5688 PO (03:01)
[2017-04-16 03:07] VITALS: BP 123/78; PULSE 95; O2SAT 96
--- NOTE | 2017-04-16 06:48 | DIAGNOSTIC IMAGING REPORT ---
ABDOMINAL ULTRASOUND, RIGHT UPPER QUADRANT HISTORY: Pancreatitis on CT. ?Biliary cause. previous cholecystectomy. COMPARISON: Abdomen and pelvis CT 04/15/2017. FINDINGS: Pancreas: The visualized pancreas appears unremarkable. Cystic area near the pancreatic head likely represents a duodenal diverticulum seen on the prior CT. Liver: The liver is echogenic consistent with fatty change. Gallbladder: The gallbladder is surgically absent. CBD: 8 mm. This is likely due to the patient's postcholecystectomy state. Right kidney: No hydronephrosis. IMPRESSION: 1. The visualized pancreas appears unremarkable. 2. Hepatic steatosis. 3. Cholecystectomy. Electronically signed by: Baudilio Delacruz M.D. 04/16/2017 6:46 AM Dictated Date/Time: 04/16/2017 6:44 AM
--- NOTE | 2017-04-16 08:23 | EMERGENCY ROOM VISIT NOTE ---
History First contact with patient: 21:45 Chief Complaint: ABDOMINAL PAIN Stated Complaint: SEVERE PAIN IN STOMACH AND AROUND THE BACK Nursing Triage Summary: pt c/o pain in right side for couple weeks, last night after eating and developed pain that wraps around her abd into bilat sides of back History of Present Illness The patient is a 51 year old female who presents to the Emergency Room with complaints of ongoing episodes of mid abdominal pain for the past few weeks. She states her discomfort primarily begins in the right upper quadrant and wraps around her abdomen to the left upper quadrant. Her discomfort seems to worsen with solid foods, but she is able to eat soft foods and drink liquids. The patient states her pain is worse tonight, and currently rates it an 8/10. She is status post cholecystectomy years ago. She does not have fever, chills, chest pain, chest tightness, shortness of breath, or lower abdominal pain. She has not taken anything [id number] for her discomfort today. No nausea or vomiting. Review of Systems More than 10 systems were reviewed and otherwise negative with the exception of history of present illness. Past Medical/Surgical History Medical Problems: (1) Dermatomyositis (2) Long-Term(Current)Use Of Steroids (3) SIRS (systemic inflammatory response syndrome) Family History FH: thyroid disease Heart disease Social History Smoking Status: Never Smoker Alcohol Use: none Drug Use: none Marital Status: Housing Status: lives with family Occupation Status: employed Current/Historical Medications Scheduled Cholecalciferol (D 1000), 2,000 UNITS PO DAILY Ibuprofen (Advil), 800 MG PO PRN UD Magnesium (Magnesium 250 mg), 250 MG PO BID Cotton-3 Fatty Acids (Fish Oil), 2,000 MG PO DAILY Ondasetron Odt (Zofran Odt), 4 MG SL Q6H Pindolol (Pindolol), 5 MG PO QAM Potassium Bicarbonate (K-Effervescent), 25 MEQ PO QAM Scheduled PRN Hydrocodone/Acetaminophen 5MG/325MG ([place] 5MG/325MG), 1-2 TABLET PO Q6 PRN for Pain Trazodone Hcl (Trazodone), 50-100 MG PO HS PRN for Sleep Physical Exam Vital Signs Date Time Temp Pulse Resp B/P (MAP) Pulse Ox O2 Delivery O2 Flow Rate FiO2 04/16/17 03:07 95 18 123/78 96 Room Air 04/16/17 02:26 96 18 116/69 96 Room Air 04/16/17 00:30 103 20 131/74 96 Room Air 04/15/17 22:24 100 16 119/75 98 Room Air 04/15/17 20:21 36.9 114 18 130/86 95 Room Air Physical Exam VITALS: Vitals are noted on the nurse's note and reviewed by myself. Vital signs stable. GENERAL: Well-developed, well-nourished, white female, who is in no acute distress and resting comfortably. Patient is cooperative with the examination. HEART: Regular rate and rhythm without murmurs gallops or rubs. LUNGS: Clear to auscultation bilaterally without wheezes, rales or rhonchi. No retractions or accessory muscle use. ABDOMEN: Positive normal bowel sounds x 4. Soft with tenderness across the upper aspect of the abdomen. No CVA tenderness. MUSCULOSKELETAL: No muscle atrophy, erythema, or edema noted. Full range of motion without joint tenderness in all extremities. No tenderness throughout the spine NEURO: Patient was alert and oriented to person place and time. CN II through XII grossly intact. Medical Decision & Procedures ER Provider Diagnostic Interpretation: CT OF THE ABDOMEN AND PELVIS WITHOUT CONTRAST CLINICAL HISTORY: Abdominal pain. COMPARISON STUDY: CT of the abdomen and pelvis April 20, 2016. TECHNIQUE: Axial images of the abdomen and pelvis were obtained without IV contrast. Images were reviewed in the axial, sagittal, and coronal planes. A dose lowering technique was utilized adhering to the principles of ALARA. FINDINGS: Lung bases are clear. There is marked geographic fatty infiltration of the liver. There is no biliary ductal dilatation status post cholecystectomy. There is no peripancreatic infiltration. There is a diverticulum of the second portion of the duodenum. There is moderate infiltration centered on the uncinate process of the pancreas and the distal duodenum which extends into the root of the small bowel mesentery. There is no well-defined fluid collection. Unenhanced images of the spleen, adrenal glands and kidneys are unremarkable. There is no evidence for a bowel obstruction. The appendix is normal. There is colonic diverticulosis without evidence for acute diverticulitis. There is no lymphadenopathy. The uterus is surgically absent. There are no suspicious osseous lesions. IMPRESSION: 1. Moderate infiltration centered on the uncinate process of the pancreas and distal duodenum with extension into the mesentery. The findings favor acute pancreatitis. Duodenitis could appear similar although is considered less likely. 2. Marked geographic fatty infiltration of the liver. 3. Colonic diverticulosis without evidence for acute diverticulitis. ABDOMINAL ULTRASOUND, RIGHT UPPER QUADRANT HISTORY: Pancreatitis on CT. ?Biliary cause. previous cholecystectomy. COMPARISON: Abdomen and pelvis CT 04/15/2017. FINDINGS: Pancreas: The visualized pancreas appears unremarkable. Cystic area near the pancreatic head likely represents a duodenal diverticulum seen on the prior CT. Liver: The liver is echogenic consistent with fatty change. Gallbladder: The gallbladder is surgically absent. CBD: 8 mm. This is likely due to the patient's postcholecystectomy state. Right kidney: No hydronephrosis. IMPRESSION: 1. The visualized pancreas appears unremarkable. 2. Hepatic steatosis. 3. Cholecystectomy. Laboratory Results 04/15/17 22:05 Red Blood Count 4.74, Mean Corpuscular Volume 79.5, Mean Corpuscular Hemoglobin 27.8, Mean Corpuscular Hemoglobin Concent 35.0, Mean Platelet Volume 9.0, Neutrophils (%) (Auto) 69.9, Lymphocytes (%) (Auto) 18.5, Monocytes (%) (Auto) 8.9, Eosinophils (%) (Auto) 2.2, Basophils (%) (Auto) 0.2, Neutrophils # (Auto) 8.94, Lymphocytes # (Auto) 2.37, Monocytes # (Auto) 1.14, Eosinophils # (Auto) 0.28, Basophils # (Auto) 0.03 04/15/17 22:05 Test 04/15/17 22:05 White Blood Count 12.80 K/uL (4.8-10.8) Red Blood Count 4.74 M/uL (4.2-5.4) Hemoglobin 13.2 g/dL (12.0-16.0) Hematocrit 37.7 % (37-47) Mean Corpuscular Volume 79.5 fL (80-100) Mean Corpuscular Hemoglobin 27.8 pg (25-34) Mean Corpuscular Hemoglobin Concent 35.0 g/dl (32-36) Platelet Count 290 K/uL (130-400) Mean Platelet Volume 9.0 fL (7.4-10.4) Neutrophils (%) (Auto) 69.9 % Lymphocytes (%) (Auto) 18.5 % Monocytes (%) (Auto) 8.9 % Eosinophils (%) (Auto) 2.2 % Basophils (%) (Auto) 0.2 % Neutrophils # (Auto) 8.94 K/uL (1.4-6.5) Lymphocytes # (Auto) 2.37 K/uL (1.2-3.4) Monocytes # (Auto) 1.14 K/uL (0.11-0.59) Eosinophils # (Auto) 0.28 K/uL (0-0.5) Basophils # (Auto) 0.03 K/uL (0-0.2) RDW Standard Deviation 37.8 fL (36.4-46.3) RDW Coefficient of Variation 13.1 % (11.5-14.5) Immature Granulocyte % (Auto) 0.3 % Immature Granulocyte # (Auto) 0.04 K/uL (0.00-0.02) Urine Color YELLOW Urine Appearance CLEAR (CLEAR) Urine pH 7.5 (4.5-7.5) Urine Specific Zoar 1.012 (1.000-1.030) Urine Protein NEG (NEG) Urine Glucose (UA) NEG (NEG) Urine Ketones NEG (NEG) Urine Occult Blood NEG (NEG) Urine Nitrite NEG (NEG) Urine Bilirubin NEG (NEG) Urine Urobilinogen NEG (NEG) Urine Leukocyte Esterase TRACE (NEG) Urine WBC (Auto) 1-5 /hpf (0-5) Urine RBC (Auto) 0-4 /hpf (0-4) Urine Hyaline Casts (Auto) 0 /lpf (0-5) Urine Epithelial Cells (Auto) 10-20 /lpf (0-5) Urine Bacteria (Auto) NEG (NEG) Urine Test NEG (NEG) Anion Gap 9.0 mmol/L (3-11) Est Creatinine Clear Calc Drug Dose 78.8 ml/min Estimated GFR () 80.5 Estimated GFR (Non- 69.4 BUN/Creatinine Ratio 14.4 (10-20) Calcium Level 9.7 mg/dl (8.5-10.1) Total Bilirubin 0.5 mg/dl (0.2-1) Aspartate Amino Transf (AST/SGOT) 38 U/L (15-37) Alanine Aminotransferase (ALT/SGPT) 59 U/L (12-78) Alkaline Phosphatase 123 U/L (45-117) Total Protein 7.7 gm/dl (6.4-8.2) Albumin 3.6 gm/dl (3.4-5.0) Globulin 4.1 gm/dl (2.5-4.0) Albumin/Globulin Ratio 0.9 (0.9-2) Amylase Level 26 U/L (25-115) Lipase 124 U/L (73-393) Medications Administered Medications (Trade) Dose Ordered Sig/Danyelle Route Start Time Stop Time Status Last Admin Dose Admin Sodium Chloride 1,000 ml @ 999 mls/hr Q1H1M ONCE IV 04/15/17 22:00 04/15/17 23:00 DC 04/15/17 22:17 999 MLS/HR Morphine Sulfate (MoRPHine SULFATE INJ) 4 mg NOW ONCE IV 04/15/17 22:00 04/15/17 22:01 DC 04/15/17 22:23 4 MG Ondansetron HCl (Zofran Inj) 4 mg NOW STAT IV 04/15/17 21:58 04/15/17 21:59 DC 04/15/17 22:17 4 MG Ketorolac Tromethamine (Toradol Inj) 30 mg NOW STAT IV 04/16/17 00:22 04/16/17 00:23 DC 04/16/17 00:41 30 MG Hydromorphone HCl (Dilaudid Inj) 0.5 mg NOW STAT IV 04/16/17 00:22 04/16/17 00:23 DC 04/16/17 00:41 0.5 MG Sodium Chloride 1,000 ml @ 999 mls/hr Q1H1M ONCE IV 04/16/17 00:30 04/16/17 01:30 DC 04/16/17 01:00 999 MLS/HR Hydromorphone HCl (Dilaudid Inj) 0.5 mg NOW STAT IV 04/16/17 02:56 04/16/17 02:58 DC 04/16/17 03:07 0.5 MG Acetaminophen/ Hydrocodone Bitart ([place] 5/325mg Home Pack) 1 homepack UD ONCE PO 04/16/17 03:00 04/16/17 03:01 DC 04/16/17 03:06 1 HOMEPACK Ondansetron HCl (ZOFRAN ODT 4MG Home Pack) 1 homepack UD ONCE PO 04/16/17 03:00 04/16/17 03:01 DC 04/16/17 03:06 1 [facility] ED Course Physical exam and history were performed. Nursing notes, EMR, and Medication List were personally reviewed. Patient appears to have upper abdominal pain for the past several months off and on with worsening symptoms tonight. She does have some reproducible tenderness on examination. IV access was established and labs were obtained. She was hydrated with [address] scan was performed. The patient has a mildly elevated white blood count of 12.8. She does not have a significant anemia, bandemia, or gross electrolyte imbalance. Amylase and lipase are nondiagnostic. She does have some mild elevation of her LFTs, likely from fatty liver disease. CT scan is concerning for pancreatitis. I did elect to perform ultrasound, which does not show biliary obstruction. The patient did require multiple rounds of pain medication here in the department for comfort. I did discuss the case with my attending physician, and I offered admission to the hospital to the patient. The patient expressed a strong desire to go home and attempt conservative measures as she felt much better after hydration and medication. I will give her a short course of pain and nausea medication. She is to drink fluids and eat soft foods. Evidently she does follow with [facility] and feels that she may be able to follow-up with them early next week. This appears reasonable. The patient may also follow with her PCP for further management. She was strongly invited back to the ER if symptoms worsen. She voiced understanding and was discharged home under the care of her . The chart was completed utilizing [employer] Speech Voice Recognition Software. Grammatical errors, random word insertions, pronoun errors, and incomplete sentences are an occasional consequence of this system due to software limitations, ambient noise, and hardware issues. Any formal questions or concerns about the content, text, or information contained within the body of this dictation should be directly addressed to the provider for clarification. . Medical Decision Differential diagnosis: Etiologies such as appendicitis, diverticulitis, PUD, biliary pathology, UTI, pancreatitis, obstruction, mesenteric ischemia, aortic pathology, infections, inflammatory bowel disease, renal colic, as well as others were entertained. Impression Primary Impression: Abdominal pain Additional Impression: Pancreatitis Departure Information Dispostion Home / Self-Care Condition GOOD Prescriptions Ondasetron Odt (ZOFRAN ODT) 4 Mg Tab 4 MG SL Q6H for Nausea, #10 TAB Prov: Michael Son PA-C 04/16/17 Hydrocodone/Acetaminophen 5MG/325MG ([place] 5MG/325MG) Tab 1-2 TABLET PO Q6 Y for Pain, #24 TAB For Initial Treatment Prov: Michael Son PA-C 04/16/17 Forms Call Back Authorization, HOME CARE DOCUMENTATION FORM, IMPORTANT VISIT INFORMATION Patient Instructions My [facility] Additional Instructions You were seen and evaluated today on an emergency basis only. This is not a substitute for, or an effort to provide, complete comprehensive medical care. It is not possible to recognize and treat all injuries or illnesses in a single emergency department visit. For this reason it is recommended that you followup with your primary care physician or case maker on Tuesday or Tuesday for recheck of your condition. You may be able to call in the morning to [facility] to help schedule the appointment. [place] (hydrocodone/acetaminophen) 5/325 mg ONE or TWO every 6 hours as needed for worsening breakthrough pain. Do not drink or drive on [place]. This medication will likely make you tired. Do not take [place] and Tylenol at the same time as both contain acetaminophen. [place] may cause constipation. You may wish to take an [id number] stool softener like Colace if this occurs. Zofran 4 mg ODT: Dissolve 1 tablet every 6 hrs as needed for nausea. Soft food and liquid diet only until seen by the PCP or case maker. You are welcome to return to the emergency department anytime with new, worsening, or concerning symptoms. Problem Qualifiers
== END 2017-04-16 03:20 | disposition home or self-care (01) ==
LOC: C.EDB 20:20 → C.EDC 04-16 03:20
DX: R10.9 Unspecified abdominal pain (principal); K85.90 Acute pancreatitis without necrosis or infection, unspecified; R65.10 Systemic inflammatory response syndrome (SIRS) of non-infectious origin without acute organ dysfunction; Z82.49 Family history of ischemic heart disease and other diseases of the circulatory system; K76.0 Fatty (change of) liver, not elsewhere classified